=== PATIENT | female | born 1995 | race Caucasian/White ===

== ENCOUNTER 2020-06-27 09:25 | Outpatient (REF) | payer OTHER, SELFPAY ==
[2020-06-27 11:30] LABS: MANUAL DIFF FLAG NO
[2020-06-27 11:46] LABS: Basophils Percent Auto 0.3 % (0-2); Eosinophils Percent Auto 0.5 % (0-4); Hemoglobin 12.2 g/dl (12.0-16.0); Imm Gran Abs Auto 0.04 X10*3/uL (0.00-0.03); Imm Gran Pct Auto 0.6 % (0.0-0.4); Lymphocytes Absolute Auto 1.5 X10*3/uL (1.2-4.9); Lymphocytes Percent Auto 23.2 % (20-40); Mean Corpuscular Hemoglobin 31.8 pg (27.0-33.0); Mean Corpuscular Volume 96.4 fL (80-98); Mean Platelet Volume 10.5 fL (9.4-12.3); Monocytes Absolute Auto 0.3 X10*3/uL (0.1-1.2); Monocytes Percent Auto 4.8 % (2-11); Neutrophils Absolute Auto 4.7 X10*3/uL (2.0-8.3); Neutrophils Percent Auto 70.6 % (45-73); Platelet Count 272 X10*3/uL (160-400); Red Blood Count 3.84 X10*6/uL (4.20-5.50); Red Cell Distribution Width 13.2 % (11.0-16.0); White Blood Count 6.6 X10*3/uL (4.8-10.8)
[2020-06-27 12:58] LABS: Alanine Aminotransferase 19 U/L (0-31); Alkaline Phosphatase 37 U/L (39-117); Anion Gap 12 (12-20); Aspartate Amino Transferase 16 U/L (5-31); Bilirubin Total 0.2 mg/dL (0.0-1.0); Blood Urea Nitrogen 13 mg/dL (9-16); Calcium 9.6 mg/dL (8.4-10.2); Carbon Dioxide 25 mmol/L (22-29); Chloride 104 mmol/L (96-108); Cholesterol 270 mg/dL; Estimated Glomerular Filt Rate > 60; Glucose Fasting 78 mg/dL (60-99); Potassium 4.3 mmol/L (3.3-5.1); Sodium 137 mmol/L (135-145); Triglycerides 122 mg/dL
[2020-06-27 13:20] LABS: TSH reflex Free T4 1.22 uIU/mL (0.32-4.0)
[2020-06-27 13:30] LABS: HDL Cholesterol 122 mg/dL; LDL Cholesterol Calculated 124 mg/dl
== END 2020-06-27 09:26 | disposition home or self-care (01) ==
LOC: HO.HMGCLDS 09:25
PROVIDERS: PCP Nurse Practitioner Family; Visit Provider Nurse Practitioner Family
DX: Z00.00 Encounter for general adult medical examination without abnormal findings (principal)
CPT/HCPCS: 36415; 80053; 80061; 84443; 85025

== ENCOUNTER 2020-11-07 08:13 | Outpatient (REF) | payer OTHER, SELFPAY ==
--- NOTE | ~2020-11-07 | XR_ITS ---
EXAMINATION: XR LUMBOSACRAL SPINE CLINICAL INFORMATION: Lower back pain. COMPARISON: None TECHNIQUE: AP and lateral views of the lumbar spine and lateral view of the lumbosacral junction. FINDINGS: The vertebral bodies and posterior elements are normal. The disc spaces are preserved and the vertebral alignment is normal. The paraspinal soft tissues are normal. XR/XR lumbar spine 2-3V IMPRESSION: Unremarkable examination.
== END 2020-11-07 08:14 | disposition home or self-care (01) ==
LOC: HO.HMGCX 08:13
PROVIDERS: PCP Nurse Practitioner Family; Visit Provider Nurse Practitioner Family
DX: M54.5 Low back pain (principal)
CPT/HCPCS: 72100

== ENCOUNTER 2021-07-03 17:00 | Outpatient (RCR) | payer OTHER, SELFPAY ==
--- NOTE | 2021-05-01 16:10 | MHC.PT.EP ---
[facility] [place] Office [place] Office [place] Office [address] Wil Tran [address] [phone] F: [phone] F: [phone] F: [phone] F: [phone] Physical Therapy Plan of Care Date of Evaluation: Date of Surgery: n/a Diagnosis: low back pain Assessment: Patient is a 25 year old female presenting to PT with complaints of pain in her L low back. Pt reports onset of pain began to worsen in January 2021 due to insidious onset but had low level back pain since wearing a boot for 4 months following ankle surgery in 2019. She presents today with impairments in pain, lumbar ROM, hip strength, core strength, and posture. 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 Pt expresses lobsterman goal of reducing pain, and is motivated to work towards this in PT. Clinical presentation today is most consistent with signs and sx associated with low back pain that is likely myofascial in nature and pt will benefit from skilled PT to address the following problems and impairments noted upon evaluation: pain, lumbar ROM, hip strength, core strength, and posture. These problems limit the patient with the following functional activities: bending, sitting, and ADLs. The prescribed treatment plan of care is medically necessary. Co-morbidities of migraines were identified and taken into considerations of plan of care. Pt was educated on HEP, role of PT, prognosis, POC. Frequency and Duration: The patient will be seen 2 x week x 5 weeks Short Term Goals: Pt will demonstrate pain free lumbar AROM in all directions in 3 weeks. Pt will demonstrate ability to perform PPT with good TA activation in 3 weeks for improved core strength. Pt will demonstrate improved hip strength by 1/3 MMT for improved lumbopelvic stability in 3 weeks. Pt will demonstrate improved postural awareness by sitting with biomechanically correct posture without cues throughout session to improve overall postural function in 2 weeks. Jail Goals: Pt will demonstrate improved Geraldine score to <10% disability in 5 weeks for improved functional mobility. Pt will demonstrate improved ability to sit x 1 hour with min to no pain in 5 weeks for improved tolerance to work. Pt will demonstrate ability to complete all ADLs including dressing with min to no pain in 5 weeks for return to PLOF. Treatment Plan: Modalities to reduce pain, spasms and effusion. Manual therapy to restore motion and function. Therapeutic exercise to improve strength and flexibility. Neuromuscular re-education for posture and balance. Therapeutic activities to return to functional activities of daily living. Electronically signed by: Leanna Nuñez, PT, DPT, ATC Please sign and return to therapist. Thank you for your referral.
--- NOTE | 2021-10-31 09:39 | MHC.PT.DC ---
[facility] [place] Office [place] Office [place] Office [address] Wil Tran [address] [phone] F: [phone] F: [phone] F: [phone] F: [phone] Physical Therapy Discharge Report Diagnosis: low back pain Date of Surgery: n/a Date of Evaluation: 05/01/21 Date of Discharge: 07/23/21 Treatments to Date: 10 Cancellations to Date: No Shows to Date: Discharge Status: Improved Function Independent with HEP Discharge Summary: 07/03 Pt L.E equal, pelvic alignment much better. Pt has nodules palpable ITB with marked tenderness. Relief aftr manual RX Electronically signed by: Jean Alfaro PT Please sign and return to therapist. Thank you for your referral.
== END 2021-10-31 09:40 | disposition home or self-care (01) ==
LOC: HO.PTCHIC 17:00
PROVIDERS: PCP Nurse Practitioner Family; Visit Provider Nurse Practitioner Family
DX: M54.50 Low back pain, unspecified (principal)
CPT/HCPCS: 97110; 97140; 97161

== ENCOUNTER 2021-08-07 18:57 | Outpatient (REF) | payer OTHER, SELFPAY ==
--- NOTE | ~2021-08-07 | MR_ITS ---
EXAMINATION: MR LUMBAR SPINE WITHOUT CONTRAST CLINICAL INFORMATION: Radiculopathy COMPARISON: X-ray 11/07/2020 TECHNIQUE: MRI of the lumbar spine was obtained using routine sequences without contrast. FINDINGS: VERTEBRAL BODIES AND PARASPINAL STRUCTURES: There is mild prominence of the lordotic curvature of the lumbar spine. Vertebral body alignment is anatomic in the sagittal plane. Vertebral body heights are intact. No evidence of acute fracture. No suspicious marrow signal changes are seen. No suspicious findings in the visualized soft tissue structures. CONUS MEDULLARIS AND CAUDA EQUINA: Normal, terminating at the level of L1-L2 disc space.. SPINAL LEVELS: T12-L1: Disc contour is within normal limits. No significant central canal or neural foramen stenosis. L1-L2: Disc contour is within normal limits. No significant central canal or neural foramen stenosis. L2-L3: Disc contour is within normal limits. No significant central canal or neural foramen stenosis. Mild facet arthropathy. L3-L4: Disc contour is within normal limits. No significant central canal or neural foramen stenosis. Mild facet arthropathy. L4-L5: Disc contour is within normal limits. No significant central canal or neural foramen stenosis. Mild facet arthropathy. L5-S1: Disc contour is within normal limits. No significant central canal or neural foramen stenosis. Mild facet arthropathy. MR/MR lumbar spine wo con IMPRESSION: 1. Mild prominence of the lordotic curvature of the spine. Multilevel mild facet arthropathy. No evidence of acute fracture. 2. No significant disc bulge, central canal or foraminal narrowing is identified.
== END 2021-08-07 18:58 | disposition home or self-care (01) ==
LOC: HO.MRI 18:57
PROVIDERS: Visit Provider Nurse Practitioner Family
DX: G89.29 Other chronic pain (principal); M54.16 Radiculopathy, lumbar region
CPT/HCPCS: 72148

== ENCOUNTER 2022-06-17 13:15 | Emergency (ER) | payer OTHER, SELFPAY ==
--- NOTE | ~2022-06-17 | US_ITS ---
EXAMINATION: US PELVIC AND TRANSVAGINAL CLINICAL INFORMATION: Left lower quadrant pain. Question hemorrhagic cyst. COMPARISON: None available. TECHNIQUE: Ultrasound of the pelvis is performed using both transabdominal and transvaginal transducers along with Doppler. Transvaginal imaging is performed due to inadequate visualization transabdominally. FINDINGS: Transabdominal exam is limited due to patient body habitus and empty bladder. The uterus is retroverted and measures 6.6 x 4 x 4.2 cm in dimension. No focal uterine lesion. Endometrial thickness is normal measuring 3 mm. The left ovary measures 3.2 x 1.8 x 2 cm. There is an irregularly-shaped cyst in the left ovary measuring 1.7 x 0.9 x 1.3 cm. This has a slightly thickened echogenic wall and some internal septations. This Probably represents an involuting cyst. The right ovary is normal-appearing and measures 2.5 x 1.3 x 1.5 cm. There is a small to moderate amount of slightly complex fluid in the pelvis. US/US pelvic and transvaginal IMPRESSION: 1.7 x 0.9 x 1.3 cm irregularly-shaped complex cyst in the left ovary probably representing an involuting cyst. Small to moderate amount of slightly complex fluid in the pelvis.
--- NOTE | 2022-06-17 13:30 | ED_ITS ---
HPI - Abdominal Pain General Chief Complaint: Abdominal Pain <WILDER Hammer - Last Filed: 06/17/22 13:35> Stated Complaint: Lower abd pain <WILDER Hammer - Last Filed: 06/17/22 13:35> Time Seen by Provider: 06/17/22 16:20 <WILDER Hammer - Last Filed: 06/17/22 13:35> Source: patient <Guerrero Hough MD - Last Filed: 06/18/22 01:11> Mode of arrival: ambulatory <Guerrero Hough MD - Last Filed: 06/18/22 01:11> History of Present Illness HPI narrative: Patient no significant past medical history with pain in left lower abdomen since last night no nausea no vomiting no diarrhea pain does get worse when she ambulates patient had similar pain month last 4 days no urinary complaints no fever chills no history of ovarian cyst no history of kidney stones <Guerrero Hough MD - Last Filed: 06/18/22 01:11> Related Data Home Medications: Previous Rx's Medication Instructions Recorded meloxicam 7.5 mg tablet 7.5 mg PO DAILY PRN pain 30 days 09/09/21 #30 tabs norgestimate-ethinyl estradiol 1 tab PO DAILY #84 tabs 04/14/22 0.18 mg/0.215mg/0.25mg-35 mcg(28)tablet (Tri-Sprintec (28)) ibuprofen 600 mg tablet 600 mg PO Q6H PRN fever or pain 06/17/22 #30 tabs <WILDER Hammer - Last Filed: 06/17/22 13:35> Allergies/Adverse Reactions: Allergies Allergy/AdvReac Type Severity Reaction Status Date / Time SEASONAL ALLERGIES Allergy Mild ITCHY Uncoded 07/23/21 15:41 WATERY EYES, SNEEZING Environmental Allergy Unknown Unknown Uncoded 07/23/21 15:41 Seasonale Allergy Unknown Unknown Uncoded 07/23/21 15:41 <WILDER Hammer - Last Filed: 06/17/22 13:35> Review of Systems Review of Systems Yes all other systems are reviewed and are negative <Guerrero Hough MD - Last Filed: 06/18/22 01:11> PMFSH Past Medical History Medical History: Medical History (Updated 06/18/22 @ 00:53 by Background Suzan) Depression H/O multiple concussions Hx of migraines <WILDER Hammer - Last Filed: 06/17/22 13:35> Social History Social History: Social History Housing: House Alcohol intake: never Patient Tobacco Use Status: Never used Tobacco Smoked in Last 30 Days: No e-Cigarette/Vaping Use: Never Used Second Hand Smoke Exposure: No Use of substances other than those prescribed or required for medical reasons: No Advance Directives: No Advance Directives Information Provided: No service: No Current occupational status: employed Current occupation: [employer] Current occupational exposures/hazards: No Cognitive needs: No Hearing needs: No Vision needs: No <WILDER Hammer - Last Filed: 06/17/22 13:35> Physical Exam ED Vital Signs: Vital Signs - 24 hr 06/17/22 13:31 06/17/22 19:17 Temperature 98.5 F 98.6 F Pulse Rate 87 87 Respiratory Rate 17 18 Blood Pressure 135/76 125/79 Pulse Oximetry 100 98 Oxygen Delivery Method Room Air Room Air BMI result Body Mass Index 28.0 <WILDER Hammer - Last Filed: 06/17/22 13:35> Vital Signs - 24 hr 06/17/22 13:31 06/17/22 19:17 Temperature 98.5 F 98.6 F Pulse Rate 87 87 Respiratory Rate 17 18 Blood Pressure 135/76 125/79 Pulse Oximetry 100 98 Oxygen Delivery Method Room Air Room Air BMI result Body Mass Index 28.0 <Guerrero Hough MD - Last Filed: 06/18/22 01:11> Appearance: Alert. Oriented X3. No acute distress. ENT: Pharynx normal. Oral Mucosa moist Neck: Normal inspection. Neck supple. CVS: Normal heart rate and rhythm. Pulses normal. Respiratory: No respiratory distress. Equal air entry bilateral, no wheezing/rales/rhonchi Abdomen: Soft , depending the left lower quadrant and suprapubic no rebound tenderness or guarding, Bowel sounds are present, no mass palpable, no CVA tenderness Skin: Skin warm and dry. Normal skin color. Normal skin turgor. Extremities: No lower extremity edema. No calf tenderness Neuro: Oriented X 3. No motor deficit. <Guerrero Hough MD - Last Filed: 06/18/22 01:11> Course Course Course Narrative: RME: 26yo F w/PMHx migraines, depression, c/o LLQ abdominal pain w/radiating to Left low back since yesterday afternoon. +soft stools. Denies N/V. Nonsurgical abdomen Abdomen soft +LLQ/suprapubic tenderness, no rebound or guarding Labs, UA, preg, CTAP ordered Full HPI, ROS and PE to be performed by primary ED provider. <WILDER Hammer - Last Filed: 06/17/22 13:35> Medical Decision Making Medical Decision Making [facility] Narrative: Patient with lower abdominal left-sided pain normal WBC count likely has hemorrhagic ovarian cyst will get ultrasound Patient ultrasound showed small left ovarian cyst feeling much better after Toradol will discharge patient home on ibuprofen <Guerrero Hough MD - Last Filed: 06/18/22 01:11> Lab Data [facility] Lab Attestation statement: I reviewed the patient's lab results. <Guerrero Hough MD - Last Filed: 06/18/22 01:11> Result Diagrams: 06/17/22 16:35 06/17/22 16:35 <WILDER Hammer - Last Filed: 06/17/22 13:35> Labs: Lab Results 06/17/22 06/17/22 06/17/22 Range/Units 16:35 16:35 16:35 WBC 9.6 (4.8-10.8) X10*3/uL RBC 4.25 (4.20-5.50) X10*6/uL Hgb 13.5 (12.0-16.0) g/dl Hct 39.6 (37.0-47.0) % MCV 93.2 (80.0-98.0) fL MCH 31.8 (27.0-33.0) pg MCHC 34.1 (31.0-35.0) g/dl RDW 12.5 (11.0-16.0) % Plt Count 287 (160-400) X10*3/uL MPV 9.6 (9.4-12.3) fL Immature Gran % (Auto) 0.3 (0.0-0.4) % Neut % (Auto) 76.6 H (45-73) % Lymph % (Auto) 19.7 L (20-40) % [place] % (Auto) 2.9 (2-11) % Eos % (Auto) 0.1 (0-4) % Baso % (Auto) 0.4 (0-2) % Lymph # (Auto) 1.9 (1.2-4.9) X10*3/uL [place] # (Auto) 0.3 (0.1-1.2) X10*3/uL Eos # (Auto) 0.0 (0.0-0.4) X10*3/uL Baso # (Auto) 0.0 (0.0-0.2) X10*3/uL Abs Immat Gran (auto) 0.03 (0.00-0.03) X10*3/uL Absolute Neuts (auto) 7.3 (2.0-8.3) x10*3/uL Absolute Nucleated RBC 0.000 (0.0-0.012) X10*3/uL Nucleated RBC % (auto) 0.0 (0.0-0.2) /100WBC Sodium 140 (135-145) mmol/L Potassium 3.9 (3.3-5.1) mmol/L Chloride 107 (96-108) mmol/L Carbon Dioxide 24 (22-29) mmol/L Anion Gap 13 (12-20) BUN 8 L (9-16) mg/dL Creatinine 0.81 (0.5-1.4) mg/dL Estim Creat Clear Calc 96.1 Estimated GFR > 60 Random Glucose 101 (60-115) mg/dL Calcium 9.9 (8.4-10.2) mg/dL Magnesium 1.8 (1.6-2.6) mg/dL Total Bilirubin 0.6 (0.0-1.0) mg/dL Direct Bilirubin 0.2 (0.0-0.5) mg/dL AST 17 (5-31) U/L ALT 19 (0-31) U/L Alkaline Phosphatase 45 (39-117) U/L Total Protein 7.3 (6.5-8.0) g/dL Albumin 4.3 (3.5-5.0) g/dL Lipase 14 (8-78) U/L Urine Color Yellow Urine Appearance Clear Urine pH 5.5 (5.0-9.0) Ur Specific [place] 1.015 (1.005-1.025) Urine Protein Negative (Neg-Trace) mg/dL Urine Glucose (UA) Negative (Negative) mg/dL Urine Ketones Negative (Negative) mg/dL Urine Blood Negative (Negative) Urine Nitrite Negative (Negative) Ur Leukocyte Esterase Negative (Negative) Urine Test (NEGATIVE) 06/17/22 Range/Units 16:35 WBC (4.8-10.8) X10*3/uL RBC (4.20-5.50) X10*6/uL Hgb (12.0-16.0) g/dl Hct (37.0-47.0) % MCV (80.0-98.0) fL MCH (27.0-33.0) pg MCHC (31.0-35.0) g/dl RDW (11.0-16.0) % Plt Count (160-400) X10*3/uL MPV (9.4-12.3) fL Immature Gran % (Auto) (0.0-0.4) % Neut % (Auto) (45-73) % Lymph % (Auto) (20-40) % [place] % (Auto) (2-11) % Eos % (Auto) (0-4) % Baso % (Auto) (0-2) % Lymph # (Auto) (1.2-4.9) X10*3/uL [place] # (Auto) (0.1-1.2) X10*3/uL Eos # (Auto) (0.0-0.4) X10*3/uL Baso # (Auto) (0.0-0.2) X10*3/uL Abs Immat Gran (auto) (0.00-0.03) X10*3/uL Absolute Neuts (auto) (2.0-8.3) x10*3/uL Absolute Nucleated RBC (0.0-0.012) X10*3/uL Nucleated RBC % (auto) (0.0-0.2) /100WBC Sodium (135-145) mmol/L Potassium (3.3-5.1) mmol/L Chloride (96-108) mmol/L Carbon Dioxide (22-29) mmol/L Anion Gap (12-20) BUN (9-16) mg/dL Creatinine (0.5-1.4) mg/dL Estim Creat Clear Calc Estimated GFR Random Glucose (60-115) mg/dL Calcium (8.4-10.2) mg/dL Magnesium (1.6-2.6) mg/dL Total Bilirubin (0.0-1.0) mg/dL Direct Bilirubin (0.0-0.5) mg/dL AST (5-31) U/L ALT (0-31) U/L Alkaline Phosphatase (39-117) U/L Total Protein (6.5-8.0) g/dL Albumin (3.5-5.0) g/dL Lipase (8-78) U/L Urine Color Urine Appearance Urine pH (5.0-9.0) Ur Specific [place] (1.005-1.025) Urine Protein (Neg-Trace) mg/dL Urine Glucose (UA) (Negative) mg/dL Urine Ketones (Negative) mg/dL Urine Blood (Negative) Urine Nitrite (Negative) Ur Leukocyte Esterase (Negative) Urine Test NEGATIVE (NEGATIVE) <WILDER Hammer - Last Filed: 06/17/22 13:35> Lab Results 06/17/22 06/17/22 06/17/22 Range/Units 16:35 16:35 16:35 WBC 9.6 (4.8-10.8) X10*3/uL RBC 4.25 (4.20-5.50) X10*6/uL Hgb 13.5 (12.0-16.0) g/dl Hct 39.6 (37.0-47.0) % MCV 93.2 (80.0-98.0) fL MCH 31.8 (27.0-33.0) pg MCHC 34.1 (31.0-35.0) g/dl RDW 12.5 (11.0-16.0) % Plt Count 287 (160-400) X10*3/uL MPV 9.6 (9.4-12.3) fL Immature Gran % (Auto) 0.3 (0.0-0.4) % Neut % (Auto) 76.6 H (45-73) % Lymph % (Auto) 19.7 L (20-40) % [place] % (Auto) 2.9 (2-11) % Eos % (Auto) 0.1 (0-4) % Baso % (Auto) 0.4 (0-2) % Lymph # (Auto) 1.9 (1.2-4.9) X10*3/uL [place] # (Auto) 0.3 (0.1-1.2) X10*3/uL Eos # (Auto) 0.0 (0.0-0.4) X10*3/uL Baso # (Auto) 0.0 (0.0-0.2) X10*3/uL Abs Immat Gran (auto) 0.03 (0.00-0.03) X10*3/uL Absolute Neuts (auto) 7.3 (2.0-8.3) x10*3/uL Absolute Nucleated RBC 0.000 (0.0-0.012) X10*3/uL Nucleated RBC % (auto) 0.0 (0.0-0.2) /100WBC Sodium 140 (135-145) mmol/L Potassium 3.9 (3.3-5.1) mmol/L Chloride 107 (96-108) mmol/L Carbon Dioxide 24 (22-29) mmol/L Anion Gap 13 (12-20) BUN 8 L (9-16) mg/dL Creatinine 0.81 (0.5-1.4) mg/dL Estim Creat Clear Calc 96.1 Estimated GFR > 60 Random Glucose 101 (60-115) mg/dL Calcium 9.9 (8.4-10.2) mg/dL Magnesium 1.8 (1.6-2.6) mg/dL Total Bilirubin 0.6 (0.0-1.0) mg/dL Direct Bilirubin 0.2 (0.0-0.5) mg/dL AST 17 (5-31) U/L ALT 19 (0-31) U/L Alkaline Phosphatase 45 (39-117) U/L Total Protein 7.3 (6.5-8.0) g/dL Albumin 4.3 (3.5-5.0) g/dL Lipase 14 (8-78) U/L Urine Color Yellow Urine Appearance Clear Urine pH 5.5 (5.0-9.0) Ur Specific [place] 1.015 (1.005-1.025) Urine Protein Negative (Neg-Trace) mg/dL Urine Glucose (UA) Negative (Negative) mg/dL Urine Ketones Negative (Negative) mg/dL Urine Blood Negative (Negative) Urine Nitrite Negative (Negative) Ur Leukocyte Esterase Negative (Negative) Urine Test (NEGATIVE) 06/17/22 Range/Units 16:35 WBC (4.8-10.8) X10*3/uL RBC (4.20-5.50) X10*6/uL Hgb (12.0-16.0) g/dl Hct (37.0-47.0) % MCV (80.0-98.0) fL MCH (27.0-33.0) pg MCHC (31.0-35.0) g/dl RDW (11.0-16.0) % Plt Count (160-400) X10*3/uL MPV (9.4-12.3) fL Immature Gran % (Auto) (0.0-0.4) % Neut % (Auto) (45-73) % Lymph % (Auto) (20-40) % [place] % (Auto) (2-11) % Eos % (Auto) (0-4) % Baso % (Auto) (0-2) % Lymph # (Auto) (1.2-4.9) X10*3/uL [place] # (Auto) (0.1-1.2) X10*3/uL Eos # (Auto) (0.0-0.4) X10*3/uL Baso # (Auto) (0.0-0.2) X10*3/uL Abs Immat Gran (auto) (0.00-0.03) X10*3/uL Absolute Neuts (auto) (2.0-8.3) x10*3/uL Absolute Nucleated RBC (0.0-0.012) X10*3/uL Nucleated RBC % (auto) (0.0-0.2) /100WBC Sodium (135-145) mmol/L Potassium (3.3-5.1) mmol/L Chloride (96-108) mmol/L Carbon Dioxide (22-29) mmol/L Anion Gap (12-20) BUN (9-16) mg/dL Creatinine (0.5-1.4) mg/dL Estim Creat Clear Calc Estimated GFR Random Glucose (60-115) mg/dL Calcium (8.4-10.2) mg/dL Magnesium (1.6-2.6) mg/dL Total Bilirubin (0.0-1.0) mg/dL Direct Bilirubin (0.0-0.5) mg/dL AST (5-31) U/L ALT (0-31) U/L Alkaline Phosphatase (39-117) U/L Total Protein (6.5-8.0) g/dL Albumin (3.5-5.0) g/dL Lipase (8-78) U/L Urine Color Urine Appearance Urine pH (5.0-9.0) Ur Specific [place] (1.005-1.025) Urine Protein (Neg-Trace) mg/dL Urine Glucose (UA) (Negative) mg/dL Urine Ketones (Negative) mg/dL Urine Blood (Negative) Urine Nitrite (Negative) Ur Leukocyte Esterase (Negative) Urine Test NEGATIVE (NEGATIVE) <Guerrero Hough MD - Last Filed: 06/18/22 01:11> Radiology Impression Discussion of test interpretation with radiology: I have reviewed the radiologist's reading. <Guerrero Hough MD - Last Filed: 06/18/22 01:11> Radiologist Impression: US/US pelvic and transvaginal IMPRESSION: 1.7 x 0.9 x 1.3 cm irregularly-shaped complex cyst in the left ovary probably representing an involuting cyst. Small to moderate amount of slightly complex fluid in the pelvis. <Guerrero Hough MD - Last Filed: 06/18/22 01:11> Medications Administered Discontinued Medications Generic Name Dose Route Start Last Admin Trade Name Freq PRN Reason Stop Dose Admin Sodium Chloride 1,000 mls @ 999 mls/hr 06/17/22 16:41 06/17/22 17:41 Ns IV 06/17/22 17:41 999 mls/hr .Q1H1M ONE Administration Ketorolac Tromethamine 30 mg 06/17/22 16:41 06/17/22 17:42 Ketorolac Tromethamine 30 Mg/Ml Vial IVPUSH 06/17/22 16:42 30 mg ONCE ONE Administration <WILDER Hammer - Last Filed: 06/17/22 13:35> Medications Administered Discontinued Medications Generic Name Dose Route Start Last Admin Trade Name Freq PRN Reason Stop Dose Admin Sodium Chloride 1,000 mls @ 999 mls/hr 06/17/22 16:41 06/17/22 17:41 Ns IV 06/17/22 17:41 999 mls/hr .Q1H1M ONE Administration Ketorolac Tromethamine 30 mg 06/17/22 16:41 06/17/22 17:42 Ketorolac Tromethamine 30 Mg/Ml Vial IVPUSH 06/17/22 16:42 30 mg ONCE ONE Administration <Guerrero Hough MD - Last Filed: 06/18/22 01:11> Discharge Plan Discharge Clinical Impression: Ovarian cyst <WILDER Hammer Last Filed: 06/17/22 13:35> Patient Disposition: Home, Self-Care <WILDER Hammer - Last Filed: 06/17/22 13:35> Instructions: Ovarian Cyst (ED) <WILDER Hammer - Last Filed: 06/17/22 13:35> Additional Instructions: Ibuprofen for pain Follow with signal technician for re-evaluation in 2 months Report to the ER if worsening of pain <WILDER Hammer - Last Filed: 06/17/22 13:35> Prescriptions: New ibuprofen 600 mg tablet 600 mg PO Q6H PRN (Reason: fever or pain) Qty: 30 0RF No Action meloxicam 7.5 mg tablet 7.5 mg PO DAILY PRN (Reason: pain) 30 Days Qty: 30 0RF norgestimate-ethinyl estradiol [Tri-Sprintec (28)] 0.18/0.215/0.25 mg-35 mcg (28) tablet 1 tab PO DAILY Qty: 84 0RF <WILDER Hammer Last Filed: 06/17/22 13:35> Stand Alone Forms: Work/School Release <WILDER Hammer Last Filed: 06/17/22 13:35> Interventions: ED Discharge Assessment Last Done: 06/17/22 19:40 <WILDER Hammer Last Filed: 06/17/22 13:35> Discharge Date/Time: 06/17/22 19:41 <WILDER Hammer - Last Filed: 06/17/22 13:35>
[2022-06-17 13:31] VITALS: BP 135/76; PULSE 87; RESP 17; TEMP 36.9; O2SAT 100; BMI 28.0
[2022-06-17 16:42] LABS: MANUAL DIFF FLAG NO
[2022-06-17 16:46] LABS: Basophils Percent Auto 0.4 % (0-2); Eosinophils Percent Auto 0.1 % (0-4); Hematocrit 39.6 % (37.0-47.0); Hemoglobin 13.5 g/dl (12.0-16.0); Imm Gran Abs Auto 0.03 X10*3/uL (0.00-0.03); Imm Gran Pct Auto 0.3 % (0.0-0.4); Lymphocytes Absolute Auto 1.9 X10*3/uL (1.2-4.9); Lymphocytes Percent Auto 19.7 % (20-40); Mean Corpuscular HGB Conc 34.1 g/dl (31.0-35.0); Mean Corpuscular Hemoglobin 31.8 pg (27.0-33.0); Mean Corpuscular Volume 93.2 fL (80.0-98.0); Mean Platelet Volume 9.6 fL (9.4-12.3); Monocytes Absolute Auto 0.3 X10*3/uL (0.1-1.2); Monocytes Percent Auto 2.9 % (2-11); Neutrophils Absolute Auto 7.3 x10*3/uL (2.0-8.3); Neutrophils Percent Auto 76.6 % (45-73); Platelet Count 287 X10*3/uL (160-400); Red Blood Count 4.25 X10*6/uL (4.20-5.50); Red Cell Distribution Width 12.5 % (11.0-16.0); White Blood Count 9.6 X10*3/uL (4.8-10.8)
[2022-06-17 16:49] LABS: Appearance Urine Clear; Color Urine Yellow; Glucose Urine UA Negative (Negative); Leukocyte Esterase Urine Negative (Negative); Nitrite Urine Negative (Negative); PH 5.5 (5.0-9.0); Specific Gravity - Urine 1.015 (1.005-1.025); Urine Blood Negative (Negative); Urine Ketones Negative (Negative); Urine Protein Negative (Neg-Trace)
[2022-06-17 16:50] LABS: UPreg QC Valid YES; Urine Pregnancy NEGATIVE (NEGATIVE)
[2022-06-17 17:00] LABS: Alanine Aminotransferase 19 U/L (0-31); Albumin Level 4.3 g/dL (3.5-5.0); Alkaline Phosphatase 45 U/L (39-117); Anion Gap 13 (12-20); Aspartate Amino Transferase 17 U/L (5-31); Bilirubin Direct 0.2 mg/dL (0.0-0.5); Bilirubin Total 0.6 mg/dL (0.0-1.0); Blood Urea Nitrogen 8 mg/dL (9-16); Calcium 9.9 mg/dL (8.4-10.2); Carbon Dioxide 24 mmol/L (22-29); Chloride 107 mmol/L (96-108); Creatinine Clr Calc Pharmacy 96.1; Estimated Glomerular Filt Rate > 60; Glucose Random 101 mg/dL (60-115); Lipase 14 U/L (8-78); Magnesium 1.8 mg/dL (1.6-2.6); Potassium 3.9 mmol/L (3.3-5.1); Sodium 140 mmol/L (135-145); Total Protein 7.3 g/dL (6.5-8.0)
--- NOTE | 2022-06-17 17:30 | PC.NURSE ---
Patient presents with abdominal pain. patient denies any trauma to the area and states that she has had pain similar to this but never this bad. Patient is otherwise well appearing.
[2022-06-17] MEDS: 0.9 % Sodium Chloride 1,000 ML 999 ML IV (17:41)
[2022-06-17] MEDS: Ketorolac Tromethamine 30 MG/ML VIAL IVPUSH (17:42)
[2022-06-17 19:17] VITALS: BP 125/79; PULSE 87; RESP 18; TEMP 37; O2SAT 98
== END 2022-06-17 19:41 | disposition home or self-care (01) ==
PROVIDERS: Physician Assistant; Emergency Provider Internal Medicine; PCP Nurse Practitioner Family
DX: N83.202 Unspecified ovarian cyst, left side (principal); R10.32 Left lower quadrant pain; E78.5 Hyperlipidemia, unspecified
CPT/HCPCS: 36415; 76830; 76856; 80048; 80076; 81003; 81025; 83690; 83735; 85025; 96374; 99284; J1885

== ENCOUNTER 2022-06-18 11:29 | Outpatient (REF) | payer OTHER, SELFPAY ==
[2022-06-18 14:19] LABS: MANUAL DIFF FLAG NO
[2022-06-18 14:28] LABS: Basophils Percent Auto 0.5 % (0-2); Eosinophils Percent Auto 0.2 % (0-4); Hematocrit 37.9 % (37.0-47.0); Hemoglobin 12.6 g/dl (12.0-16.0); Imm Gran Abs Auto 0.02 X10*3/uL (0.00-0.03); Imm Gran Pct Auto 0.3 % (0.0-0.4); Lymphocytes Absolute Auto 1.8 X10*3/uL (1.2-4.9); Mean Corpuscular HGB Conc 33.2 g/dl (31.0-35.0); Mean Corpuscular Hemoglobin 31.7 pg (27.0-33.0); Mean Corpuscular Volume 95.5 fL (80.0-98.0); Mean Platelet Volume 10.4 fL (9.4-12.3); Monocytes Absolute Auto 0.3 X10*3/uL (0.1-1.2); Monocytes Percent Auto 4.6 % (2-11); Neutrophils Absolute Auto 3.7 x10*3/uL (2.0-8.3); Neutrophils Percent Auto 63.4 % (45-73); Platelet Count 269 X10*3/uL (160-400); Red Blood Count 3.97 X10*6/uL (4.20-5.50); Red Cell Distribution Width 12.8 % (11.0-16.0); White Blood Count 5.9 X10*3/uL (4.8-10.8)
[2022-06-18 14:35] LABS: Appearance Urine Turbid; Color Urine Yellow; Glucose Urine UA Negative (Negative); Leukocyte Esterase Urine Negative (Negative); Nitrite Urine Negative (Negative); PH 5.5 (5.0-9.0); Specific Gravity - Urine 1.025 (1.005-1.025); Urine Blood Negative (Negative); Urine Ketones Negative (Negative); Urine Protein Negative (Neg-Trace)
[2022-06-18 14:43] LABS: Alanine Aminotransferase 17 U/L (0-31); Alkaline Phosphatase 39 U/L (39-117); Anion Gap 9 (12-20); Aspartate Amino Transferase 15 U/L (5-31); Bilirubin Total 0.6 mg/dL (0.0-1.0); Blood Urea Nitrogen 8 mg/dL (9-16); Calcium 9.5 mg/dL (8.4-10.2); Carbon Dioxide 26 mmol/L (22-29); Chloride 110 mmol/L (96-108); Estimated Glomerular Filt Rate > 60; Glucose Random 88 mg/dL (60-115); Lipase 16 U/L (8-78); Potassium 4.2 mmol/L (3.3-5.1); Sodium 141 mmol/L (135-145); Total Protein 6.7 g/dL (6.5-8.0)
[2022-06-18 15:28] LABS: TSH reflex Free T4 0.79 uIU/mL (0.32-4.0)
== END 2022-06-18 11:30 | disposition home or self-care (01) ==
LOC: HO.HMGCLDS 11:29
PROVIDERS: PCP Nurse Practitioner Family; Visit Provider Nurse Practitioner Family
DX: R10.13 Epigastric pain (principal); R10.2 Pelvic and perineal pain; R53.83 Other fatigue
CPT/HCPCS: 36415; 80053; 81003; 83690; 84443; 85025

== ENCOUNTER 2024-08-03 08:10 | Outpatient (AMB) | payer OTHER, SELFPAY ==
[2024-08-03 08:18] VITALS: BP 120/72; PULSE 73; O2SAT 97; BMI 30.9
--- NOTE | 2024-08-03 08:18 | MHC.PC.OV ---
Vital Signs 08/03/24 08:18 Height 5 ft 2 in Weight 169 lb BMI 30.9 BP 120/72 Blood Pressure Location Lt brachial Position Sitting Pulse 73 Pulse Source Pulse Oximeter Pulse Oximetry (%) 97 Oxygen Delivery Method Room Air Intake Visit Reasons: Annual PE Allergies SEASONAL ALLERGIES Allergy (Mild, Uncoded 08/03/24 08:41) ITCHY WATERY EYES, SNEEZING Environmental Allergy (Unknown, Uncoded 08/03/24 08:41) Unknown Seasonale Allergy (Unknown, Uncoded 08/03/24 08:41) Unknown Medication List - Last Reconciled 08/03/24 by ROYAL Lopez No Known Home Meds Tobacco use date assessed: 08/03/24 Dental Screening Dental Screen Date: 08/03/24 Did you have a dental visit in the last 12 months?: Yes Did you have a dental problem in the last 6 months where you did not have access to dental care?: No Was dental information given to patient?: Patient has dentist HPI Annual PE HPI Details History of Present Illness The patient is a 28-year-old female presenting for follow-up after an emergency section. The section was performed a few weeks ago, and the patient reports doing quite well since the procedure. The incision is healing well with slight ecchymosis on the right side, which is fading. The incision is well approximated, although the right side is slightly open, but there are no signs of infection. There is no surrounding erythema, warmth, or severe tenderness upon touch. The rest of the physical examination was benign, indicating no additional complications at this time. Health Maintenance has a SPECIAL PROJECTS COORDINATOR Social History Review of Systems denies any fevers, chills, n/v, blood in stool, constipation, diarrhea, cp, sob, si or hi Physical Exam General: Cooperative, healthy appearing, comfortable, no acute distress and well developed Orientation: Patient oriented x3 Limitations: No limitations Head: Normal to inspection Ears: Hearing grossly normal bilaterally Nose: Normal external nose present Face and sinus: Normal facial exam Eyes: Appearance normal, both eyes and all related structures Neck: Normal visual inspection and Yes full ROM Respiratory: Normal respiratory effort and able to speak in complete sentences. Clear to auscultation bilaterally Cardiovascular: Regular rate and rhythm. Normal S1 and S2 GI: Incision from recent healing well, slight ecchymosis fading on the right side, incision fairly well approximated except for a slight opening on the right side, no signs of infection, erythema, warmth, or severe tenderness with touch Skin: No rashes or lesions noted Neuro: Patient oriented x3 Extremities: Normal to inspection Results Plan labs, fasting [facility] Medical History H/O multiple concussions Depression Hx of migraines Surgical History Hx of section Social History Housing: House Alcohol intake: never Patient Tobacco Use Status: Never used Tobacco e-Cigarette/Vaping Use: Never Used Second Hand Smoke Exposure: No service: No Current occupational status: employed Current occupation: [employer] Current occupational exposures/hazards: No Cognitive needs: No Hearing needs: No Vision needs: No Questionnaire PHQ-9 Over the last 2 weeks, how often have you been bothered by any of the following problems? 1. Little interest or pleasure in doing things: not at all 2. Feeling down, depressed, or hopeless: not at all 3. Trouble falling or staying asleep, or sleeping too much: not at all 4. Feeling tired or having little energy: not at all 5. Poor appetite or overeating: not at all 6. Feeling bad about yourself - or that you are a failure or have let yourself or your family down: not at all 7. Trouble concentrating on things, such as reading the newspaper or watching television: not at all 8. Moving or speaking so slowly that other people could have noticed. Or the opposite - being so fidgety or restless that you have been moving around a lot more than usual: not at all 9. Thoughts that you would be better off or of hurting yourself in some way: not at all Total score: 0 Depression Screening Interpretation: Negative Depression Screening Done: Yes 52526 - PHQ-9 Billing: Yes Source: Developed by Drs. Francisco Silverman, Kaylin Parsons, Tobin Oglesby and colleagues, with an educational peewee from [employer]. Thrive Questionnaire Date Thrive assessed: 08/03/24 I am a: Patient What is your living situation today?: I have a steady place to live Within the past 12 months, did the food you bought not last and you didn't have the money to get more?: Never true Within the past 12 months, did you worry whether your food would run out before you got money to buy more?: Never true Do you have trouble paying for medicines?: No Do you have trouble getting transportation to medical appointments?: No Do you have trouble paying your heating and electricity bill?: No Do you have trouble taking care of your child, family member or friend?: No Do you have trouble with day-to-day activities such as bathing, preparing meals, shopping, managing finances, etc.?: No Are you currently unemployed and looking for a job?: No Are you interested in more education?: No Please select the resources that you would like help with: None Currently or been in a relationship where the following occur: No concerns reported THRIVE Score: 0 AUDIT C Alcohol Use Questionnaire (AUDIT-C) 1. How often do you have a drink containing alcohol?: 2-4 times a month 2. How many drinks containing alcohol do you have on a typical day when you are drinking?: 3 or 4 3. How often do you have six or more drinks on one occasion?: Never Total Score: 3 Score Reviewed/Action Taken: Yes EDU-7 AMB Questionnaire EDU-7 Date EDU - 7 assessed: 08/03/24 Feeling nervous, anxious, or on edge: 0 = Not at all Not being able to stop or control worryin = Not at all Worrying too much about different things: 0 = Not at all Trouble relaxin = Not at all Being so restless that it is hard to sit still: 0 = Not at all Becoming easily annoyed or irritable: 0 = Not at all Feeling afraid as if something awful might happen: 0 = Not at all Total EDU-7 score (0-4 normal; 5-9 mild; 10-14 moderate; 15-21 severe): 0 Source: Developed by Drs. Francisco Silverman, Kaylin Parsons, Tobin Oglesby and colleagues, with an educational peewee from [employer]. EDU-7 Assessment Billing EDU-7 Assessment Tool: EDU-7 Assessment 30638 Physical exam (Primary Care) Vital Signs: Last Vital Signs Pulse 73 08/03/24 08:18 BP 120/72 08/03/24 08:18 Pulse Ox 97 08/03/24 08:18 Oxygen Delivery Method Room Air 08/03/24 08:18 BMI result Body Mass Index 30.9 Tobacco/Smoking Status: Tobacco use Status Tobacco use date assessed 08/03/24 08/03/24 08:22 Patient Tobacco Use Status Never used Tobacco 08/03/24 08:22 e-Cigarette/Vaping Use Never Used 08/03/24 08:22 PHQ-9: PHQ-9 Score PHQ-9: Total score 0 08/03/24 08:22 Depression Screening Interpretation: Negative Thrive Assessment: Date of Thrive Assessment Date Thrive assessed 08/03/24 08/03/24 08:22 Currently or been in a relationship where the following occur: No concerns reported Coding Level of Care Code Est Pt Prev Care 18-39y(55002) Diagnoses Physical exam Z00. Additional Codes EDU-7 Assessment Billing - EDU-7 Assessment Tool: EDU-7 Assessment 63524 ([id number]) PHQ-9 - 52883 - PHQ-9 Billing: Yes ([id number]) Assessment & Plan Assessment & Plan (1) Physical exam: Code(s): Z00.00 - Encounter for general adult medical examination without abnormal findings Category: Medical Plan . Orders: Orders Complete Blood Count Auto Diff Today Z00.00 - Encounter for general adult medical examination without abnormal findings Comprehensive [place]. Panel Fast Today Z00.00 - Encounter for general adult medical examination without abnormal findings TSH reflex Free T4 Today Z00.00 - Encounter for general adult medical examination without abnormal findings UA CC w/rflx Micro + Cult Today Z00.00 - Encounter for general adult medical examination without abnormal findings Lipid Panel Today Z00.00 - Encounter for general adult medical examination without abnormal findings
--- OUTSIDE RECORDS SUMMARY | 2024-08-03 08:24 | XMS_ITS | Clinical Summary ---
Author Organization [facility] Address [address] [place] [id number] Phone Care Team Providers Care Parts Designer Name Role Phone Obdulio Rodrigues MD Primary Care Provider [phone] Immunizations Immunization Administration Dates Next Due DTaP 5 02/24/2001 HPV, Quadrivalent 12/27/2008,07/18/2008,05/18/19 09 IPV 02/24/2001 MMR 12/19/1999 Meningococcal Conj (Menactra) MCV4P 12/07/2012,0 05/17/2008 Tdap 05/17/2008 Varicella 05/17/2008 Social History Tobacco Use Types Packs/Day Years Used Date Smoking Tobacco: Never Comments:Never Smoker Comments Unknown Sex and Gender Information Value Date Recorded Sex Assigned at Not on file Legal Sex Female 6:22 PM EDT Gender Identity Not on file Sexual Orientation Not on file Last Filed Vital Signs Vital Sign Reading Time Taken Comments Blood Pressure - - Pulse 92 01/13/2014 2:17 PM EST Temperature 36.9 C (98.4 F) 06/07/2013 1:04 PM EDT Respiratory Rate - - Oxygen Saturation - - Inhaled Oxygen Concentration - - Weight 61.2 kg (134 lb 14.4 oz) 01/13/2014 2:17 PM EST Height 157.5 cm (5' 2 ) 01/13/2014 2:17 PM EST Body Mass Index 24.67 01/13/2014 2:17 PM EST Plan of Treatment Health Maintenance Due Date Last Done Comments IPV Vaccines (2 of 3 - 4-dos e series) 03/24/2001 02/24/2001 Varicella Vaccines (2 of 2 - 2-dose childhood series) 08/09/2008 05/17/2008 Hepatitis B Vaccines (1 of 3 - 19+ 3-dose series) 11/04/2014 DTaP,Tdap,and Td Vaccines (3 - Td or Tdap) 05/17/2018 05/17/2008, 02/24/2001 Influenza Vaccines (#1) 2023 COVID-19 Vaccine (1 - 2023-2 5 season) 2023 MMR Vaccines Completed 12/19/1999 HPV Vaccines Completed 12/27/2008, 07/18/2008, 05/17/2008 Meningococcal Vaccine Completed 12/07/2012 , 05/17/2008 HIB Vaccines Aged Out No longer eligi ble based on patient's age to complete this topic Hepatitis A Vaccines Aged Out No long er eligible based on patient's age to complete this topic Men B Vaccine Aged Out No longer elig ible based on patient's age to complete this topic Pneumococcal Vaccine Aged Out No long er eligible based on patient's age to complete this topic Care Teams Parts Designer Relationship Specialty Start Date End Date Obdulio Rodrigues MD [facility] [facility] [address] PCP - General 06/17/17
== END 2024-08-03 08:38 | disposition home or self-care (01) ==
LOC: HO.HMCC 08:12
PROVIDERS: PCP Nurse Practitioner Family; Visit Provider Nurse Practitioner Family
DX: Z00.00 Encounter for general adult medical examination without abnormal findings (principal)

== ENCOUNTER 2024-08-03 08:10 | Outpatient (REF) | payer OTHER, SELFPAY ==
[2024-08-03 10:25] LABS: MANUAL DIFF FLAG NO
[2024-08-03 10:31] LABS: Basophils Percent Auto 0.6 % (0-2); Eosinophils Absolute Auto 0.3 X10*3/uL (0.0-0.4); Eosinophils Percent Auto 4.2 % (0-4); Hematocrit 37.6 % (37.0-47.0); Hemoglobin 12.4 g/dl (12.0-16.0); Imm Gran Abs Auto 0.02 X10*3/uL (0.00-0.03); Imm Gran Pct Auto 0.3 % (0.0-0.4); Lymphocytes Percent Auto 31.4 % (20-40); Mean Corpuscular Hemoglobin 31.6 pg (27.0-33.0); Mean Corpuscular Volume 95.9 fL (80.0-98.0); Mean Platelet Volume 9.8 fL (9.4-12.3); Monocytes Absolute Auto 0.3 X10*3/uL (0.1-1.2); Monocytes Percent Auto 5.2 % (2-11); Neutrophils Absolute Auto 3.8 x10*3/uL (2.0-8.3); Neutrophils Percent Auto 58.3 % (45-73); Platelet Count 381 X10*3/uL (160-400); Red Blood Count 3.92 X10*6/uL (4.20-5.50); Red Cell Distribution Width 13.2 % (11.0-16.0); White Blood Count 6.5 X10*3/uL (4.8-10.8)
[2024-08-03 10:37] LABS: Appearance Urine Clear; Color Urine Yellow; Glucose Urine UA Negative (Negative); Leukocyte Esterase Urine Moderate (2+) (Negative); Nitrite Urine Negative (Negative); PH 5.5 (5.0-9.0); Specific Gravity - Urine >= 1.030 (1.005-1.025); UMIC TRIGGER UACC YES; Urine Blood Negative (Negative); Urine Ketones Trace mg/dL (Negative); Urine Protein Negative (Neg-Trace)
[2024-08-03 10:43] LABS: Bacteria Urine None Seen (None Seen); Hyaline Casts Urine 0-2 /LPF (0-2); RBC Urine 0-2 /HPF (0-2); Squamous Epithelial Cell Urine 0-2 /HPF (0-2); UACC Culture Trigger YES
[2024-08-03 10:58] LABS: Alanine Aminotransferase 26 U/L (0-31); Albumin Level 4.4 g/dL (3.5-5.0); Alkaline Phosphatase 71 U/L (39-117); Anion Gap 13 (12-20); Aspartate Amino Transferase 22 U/L (5-31); Bilirubin Total 0.4 mg/dL (0.0-1.0); Blood Urea Nitrogen 12 mg/dL (9-16); Calcium 9.9 mg/dL (8.4-10.2); Carbon Dioxide 24 mmol/L (22-29); Chloride 107 mmol/L (96-108); Cholesterol 287 mg/dL (<200); Estimated Glomerular Filt Rate > 60; Glucose Fasting 86 mg/dL (60-99); HDL Cholesterol 90 mg/dL (>40); LDL Cholesterol Calculated 180 mg/dL (<100); Potassium 3.9 mmol/L (3.3-5.1); Sodium 140 mmol/L (135-145); Total Protein 7.4 g/dL (6.5-8.0); Triglycerides 86 mg/dL (<150)
[2024-08-03 11:02] LABS: TSH reflex Free T4 0.88 uIU/mL (0.32-4.0)
== END 2024-08-03 08:11 | disposition home or self-care (01) ==
LOC: HO.HMGCLDS 08:10
PROVIDERS: PCP Nurse Practitioner Family; Visit Provider Nurse Practitioner Family
DX: Z00.00 Encounter for general adult medical examination without abnormal findings (principal)
CPT/HCPCS: 36415; 80053; 80061; 81001; 84443; 85025; 87086; 96127